=== PATIENT | female | born 1990 | race Caucasian/White ===

== ENCOUNTER 2017-05-22 10:57 | Inpatient (IN) ==
[2017-05-22] MEDS ORDERED: CITRIC ACID/SODIUM CITRATE 30 ML UDCUP PO ONE (11:31)
[2017-05-22] MEDS ORDERED: ceFAZolin 2,000 MG in PREMIX 1 EACH IV ONE (11:31)
[2017-05-22] MEDS ORDERED: FAMOTIDINE 20 MG/2 ML VIAL IV ONE (11:31)
[2017-05-22 11:57] LABS: Basophils # 0.1 10*3/uL (0.0-0.2); Basophils % 0.5 % (0.0-0.8); Eosinophils # 0.1 10*3/uL (0.0-0.87); Eosinophils % 1.2 % (0.00-10.9); Hematocrit 37.7 VOL% (35.7-47.0); Hemoglobin 12.9 GM/DL (12.0-16.0); Immature Granulocytes % 0.6 %; Immature Granulocytes Absolute 0.06 #; Lymphocytes # 2.1 10*3/uL (1.4-4.0); Lymphocytes % 20.2 % (21.3-54.2); Mean Corpuscular HGB Conc 34.2 GM/DL (32-36); Mean Corpuscular Hemoglobin 30 PG (27-34); Mean Corpuscular Volume 88.7 FL (87-102); Mean Platelet Volume 10.9 FL (9.6-12.0); Monocytes # 0.6 10*3/uL (0.11-0.8); Monocytes % 5.8 % (1.7-12.7); Neutrophils # 7.5 10*3/uL (1.4-7.4); Neutrophils % 71.7 % (38.7-73.9); Platelet Count 305 T/CUMM (130-400); Red Blood Count 4.25 MC/CUMM (3.8-5.5); Red Cell Distribution Width 13.5 % (9.3-17.3); White Blood Count 10.4 T/CUMM (4-12)
[2017-05-22] MEDS ORDERED: LACTATED RINGERS 1,000 ML IV SCH ×2 (12:00→14:30)
[2017-05-22] MEDS ORDERED: LACTATED RINGERS 1,000 ML IV ONE (12:00)
[2017-05-22] MEDS ORDERED: OXYTOCIN/LR 30 UNIT/1,000 ML BAG IV ONE (12:04)
[2017-05-22] MEDS ORDERED: OXYTOCIN 10 UNIT/ML VIAL IM ONE (12:04)
[2017-05-22 12:41] LABS: Albumin 2.9 G/DL (3.4-5.0); Bilirubin,Total 0.5 MG/DL (0.2-1.0); Calcium 8.6 MG/DL (8.5-10.1); Osmolality,Calculated 274.4 MOS/KG (273-304); Potassium 3.6 MMOL/L (3.5-5.1); Total Protein 6.7 G/DL (6.4-8.3)
--- NOTE | 2017-05-22 14:27 | OB/GYN History & Physical ---
History of Present Illness Chief complaint: Repeat 39 weeks History of present illness: Ms. Sarkar is a 26 year old female 2 para 1 EDC is 05/29/2017 at 39 weeks gestation presents for repeat section. Risks benefits are discussed she is in full agreement. heart tones category 1. No contractions were noted. Fetus is very active. All the risks and benefits were thoroughly discussed with the patient and her and she is in full agreement Home Medications Medication Instructions Recorded Confirmed Type Albuterol Inhaler [Proventil 2 puff INH Q4H PRN #1 inhaler 02/10/16 Rx Inhaler] predniSONE TAB [PredniSONE] 20 mg PO BID #14 tablet 02/10/16 Rx Allergies Allergy/AdvReac Type Severity Reaction Status Date / Time diphenhydramine Allergy Difficulty Verified 02/10/16 12:13 [From Benadryl] Breathing Medical,Surgical,& Family Hx - Medical History Cardio: No history of: Cardiovascular Problems Psychological: No history of: Anxiety Disorders, Violent Behavior Neurology: No history of: Brain Aneurysm, Cerebral Hemorrhage, Cerebrovascular Accident , Cerebral Palsy, Dementia, Migraine, Multiple Sclerosis, Parkinson's Disease, Peripheral Neuropathy, Seizures, TIA, Vertigo, Neurologocal Cancer HEENT: No history of: HEENT Problems Endocrine: No history of: Diabetes Mellitus (IDDM), Diabetes Mellitus (NIDDM), Thyroid Disorder, Endocrine Cancer, Endocrine Problems Respiratory: History of: Asthma No history of: Bronchitis, COPD, Intubation, Obstructive Sleep Apnea, Pulmonary Embolism, Pulmonary Hypertension, Pneumonia, Lung Cancer, Respiratory Problems Renal: No history of: Renal Problems Gastrointestinal: No history of: GI Problems Musculoskeletal: No history of: Amputation, Musculoskeletal Problems Hematology: No history of: Blood Transfusion Reaction, Bleeding Problems Reproductive: No history of: Ectopic , Complication Other: No history of: Cancer, Eczema, HIV, Miscellaneous Medical Problems - Surgical History Cardiac Surgeries: Patient Denies: Cardiac Catheterization, Cardiac Surgery Thoracic Surgeries: Patient denies;: Kidney (Renal Surgery), Organ Transplant, Lobectomy Neurologic Surgeries: Patient denies: Brain Aneurysm, Cerebral Hemorrhage, Neurologic Surgery HEENT Surgeries: Patient denies: Eye Surgery, Thyroid Surgery, Tonsilectomy & Adenoidectomy Abdominal Surgeries: Patient denies: Abdominal Surgery, Appendectomy, Cholecystectomy, Colonoscopy , Gastric Bypass Surgery, EGD, Hernia Repair Reproductive Surgeries: Surgical HX of;: Section (x1) Patient denies;: Breast Surgery, Genitourinary Surgery, Hysterectomy, Tubal Ligation Orthopedic Surgeries: Surgical HX of;: Orthopedic Surgery (R ankle) Patient denies;: Implanted Devices, Total Knee Replacement - Family History Family History: Reports;: Family Heart Disease (father), Family Hypertension ( father) Denies;: Family Anesthesia Reaction, Family Cancer, Family Diabetes, Family Hematology, Family Psychiatric Problems, Family Stroke, Additional Family History - Social History Smoking Status: Never smoker Frequency of Alcohol Use: None 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: 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 - Constitutional Vitals: Vital Signs Temp Pulse Resp BP 05/22/17 12:00 98.1 F 98 H 20 128/71 General appearance: normal weight - Antepartum / Post Antepartum Exam Cervix - Dilatation: Closed - Head Head exam: Present: normal inspection - Eye Eye exam: Present: EOMI Pupils: Present: VALERY - ENT ENT exam: Present: normal exam - Neck Neck exam: Present: normal inspection - Respiratory Respiratory exam: Present: clear to auscultation bilaterally - Breast Breasts: as per HPI Menstruation: as per HPI - Cardiovascular Cardiovascular exam: Present: regular rate and rhythm - GI/Abdominal GI/Abdominal exam: Present: normal bowel sounds - Extremities Exam Extremities exam: Present: normal inspection - Back Exam Back exam: Present: normal inspection - Neurological Exam Neurological exam: Present: alert - Psychiatric Psychiatric exam: Present: normal affect - Skin Skin exam: Present: normal color Results - Labs CBC & BMP: 05/22/17 11:50 05/22/17 11:50
--- NOTE | 2017-05-22 14:28 | Operative Note ---
Date of procedure: 05/22/17 Procedure: Preoperative diagnosis: 39 weeks gestation previous Postoperative diagnosis: Same Anesthesia:[] Regional Estimated blood loss: [] 300 Surgeon: Dr. Ramirez Findings: [] Artificial rupture membranes at 1357, baby is born at 1358, the placenta was delivered at 1359, the weight was 6 lbs. 13 oz., Apgars was 9 at 1 minute, 9 at 5 minutes, Complications: None Procedure: Low transverse section The patient was taken to the operating suite heart tones were obtained prior to and after regional anesthesia was obtained. She was placed in supine position her abdomen was prepped and draped in usual manner for major abdominal surgery. Through an abdominal incision the skin, subcutaneous, fascial layer and peritoneal the abdomen was entered. The bladder flap was created and a low transverse incision was made.. Fluid was clear and normal amount X, Apgars, the placenta was delivered and sent to lab for further evaluation. Injected with intrauterine Pitocin. The first layer of the uterus was closed with #1 Vicryl in a continuous locking manner. Close to imbricate the first layer with #1 Vicryl. The peritoneum was approximated with #2-0 Vicryl.[] All the last sponges and instruments were accounted for -2.) #2-0 Vicryl. Fascia was approximated with #0-0 Maxon.. The skin was approximated with afny. She tolerated procedure well and was taken to recovery room in stable condition. Surgeon / Physician: Teresita Ramirez Results - Labs CBC & BMP: 05/22/17 11:50 05/22/17 11:50 Discharge Plan - Discharge Medications No Action Albuterol Inhaler [Proventil Inhaler] 2 puff INH Q4H PRN #1 inhaler PRN Reason: Shortness Of Breath/Wheezing predniSONE TAB [PredniSONE] 20 mg PO BID #14 tablet - Follow Up or Referral - Forms/Instructions
[2017-05-22] MEDS ORDERED: RHO(D) IMMUNE GLOBULIN 300 MCG SYRINGE IM ONE (14:29)
[2017-05-22] MEDS ORDERED: OXYTOCIN/LR 20 UNIT/1,000 ML BAG IV ONE (14:29)
[2017-05-22] MEDS ORDERED: SIMETHICONE CHEW 80 MG TABLET PO PRN (14:29)
[2017-05-22] MEDS ORDERED: ONDANSETRON 4 MG/2 ML VIAL IV PRN (14:29)
[2017-05-22] MEDS ORDERED: ACETAMINOPHEN 325 MG TABLET PO PRN (14:29)
[2017-05-22 14:30] LABS: Cord Arterial Blood HCO3 22.5 MMOL/L
[2017-05-22 14:35] LABS: Cord Venous Blood PCO2 43.1 MMHG; Cord Venous Blood PO2 38.3
[2017-05-22 14:35] LABS: Apearance,Urine CLEAR (Clear); Bilirubin,Urine Negative (Negative); Blood, Urine Negative (Negative); Glucose,Urine (UA) Negative (Negative); Ketones,Urine 20 mg/dL (Negative); Mucus,Urine Occasional /LPF (Occasional); Nitrite,Urine Negative (Negative); Protein,Urine Negative; RBC,Urine 1 /HPF (0-4); Urine Color Yellow (Yellow); Urine Specific Gravity 1.008 (1.001-1.035); Urine Urobilinogen < 2.0 EU/DL (0.2-1.0); WBC,Urine 1 /HPF (0-6)
[2017-05-22] MEDS ORDERED: MORPHINE 10 MG/10 ML VIAL ONE (14:38)
--- NOTE | 2017-05-22 14:43 | Anesthesia Post-Op ---
Anesthesia Post OP - Post Ansesthetic Evaluation Patient seen in post op: Yes Resp: within normal limits CV: within normal limits Mental: within normal limits Temp: within normal limits [id number]: within normal limits Nausea and Vomiting: within normal limits Pain: within normal limits
[2017-05-22 22:55] LABS: Basophils # 0.1 10*3/uL (0.0-0.2); Basophils % 0.4 % (0.0-0.8); Eosinophils # 0.1 10*3/uL (0.0-0.87); Eosinophils % 0.6 % (0.00-10.9); Hemoglobin 11.5 GM/DL (12.0-16.0); Immature Granulocytes % 0.6 %; Immature Granulocytes Absolute 0.09 #; Lymphocytes # 2.1 10*3/uL (1.4-4.0); Lymphocytes % 13.3 % (21.3-54.2); Mean Corpuscular HGB Conc 34.8 GM/DL (32-36); Mean Corpuscular Hemoglobin 31 PG (27-34); Mean Corpuscular Volume 88.7 FL (87-102); Mean Platelet Volume 10.9 FL (9.6-12.0); Monocytes % 6.4 % (1.7-12.7); Neutrophils # 12.3 10*3/uL (1.4-7.4); Neutrophils % 78.7 % (38.7-73.9); Platelet Count 277 T/CUMM (130-400); Red Blood Count 3.72 MC/CUMM (3.8-5.5); Red Cell Distribution Width 13.2 % (9.3-17.3); White Blood Count 15.6 T/CUMM (4-12)
[2017-05-22] MEDS: DOCUSATE SODIUM 100 MG CAPSULE PO SCH (23:02)
[2017-05-23 02:53] LABS: Basophils # 0.1 10*3/uL (0.0-0.2); Basophils % 0.5 % (0.0-0.8); Eosinophils # 0.2 10*3/uL (0.0-0.87); Eosinophils % 1.2 % (0.00-10.9); Hematocrit 34.2 VOL% (35.7-47.0); Hemoglobin 11.6 GM/DL (12.0-16.0); Immature Granulocytes % 0.5 %; Immature Granulocytes Absolute 0.07 #; Lymphocytes # 2.3 10*3/uL (1.4-4.0); Lymphocytes % 15.1 % (21.3-54.2); Mean Corpuscular HGB Conc 33.9 GM/DL (32-36); Mean Corpuscular Hemoglobin 30 PG (27-34); Mean Corpuscular Volume 88.4 FL (87-102); Mean Platelet Volume 10.8 FL (9.6-12.0); Monocytes # 0.9 10*3/uL (0.11-0.8); Monocytes % 6.3 % (1.7-12.7); Neutrophils # 11.4 10*3/uL (1.4-7.4); Neutrophils % 76.4 % (38.7-73.9); Platelet Count 284 T/CUMM (130-400); Red Blood Count 3.87 MC/CUMM (3.8-5.5); Red Cell Distribution Width 13.2 % (9.3-17.3); White Blood Count 14.9 T/CUMM (4-12)
[2017-05-23] MEDS: MAGNESIUM HYDROXIDE SUSP 30 ML UDCUP PO PRN ×2 (09:17→20:23)
[2017-05-23] MEDS: MULTIVITAMIN (PRENATAL) TABLET PO SCH (09:17)
[2017-05-23] MEDS: DOCUSATE SODIUM 100 MG CAPSULE PO SCH ×2 (09:17→20:23)
[2017-05-23] MEDS: IBUPROFEN 800 MG TABLET PO PRN ×2 (12:29→20:54)
--- NOTE | 2017-05-23 15:37 | OB/GYN Progress Note ---
Assessment and Plan (1) Previous section Status: Acute Current Visit: Yes (2) S/P repeat low transverse Status: Acute Assessment and plan: Initiate routine post-op orders. 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 Bonding well with . 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 - Constitutional Vitals: Vital Signs Temp Pulse Resp BP Pulse Ox 05/23/17 11:15 98.3 F 69 20 108/51 97 05/23/17 07:44 97.7 F 86 18 111/69 98 05/23/17 04:00 98.5 F 82 18 107/51 96 05/23/17 00:15 98.2 F 73 18 97/57 96 05/22/17 19:20 98 F 74 16 106/62 96 05/22/17 18:40 79 20 117/63 98 05/22/17 17:40 67 20 116/69 98 05/22/17 17:10 75 18 122/67 98 05/22/17 16:40 97.1 F L 78 20 119/69 98 General appearance: no acute distress - Antepartum / Post Antepartum Exam Breast: bilateral: normal Abdomen obstetrics: Present: bowel sounds normal Vagina: Present: normal moisture, discharge (light lochia rubra) Uterus exam: Present: enlarged Anus/Rectum: Present: normal perianal skin - Gyencological / Post Surgical Post Surgical Exam Lungs: bilateral: normal Chest: Normal S1, Normal S2 Extremities CUSTOM BOOKBINDER: Present: normal Abdomen obstetrics progress note: Present: normal appearance, soft Incision OB: Present: normal, intact - Head Head exam: Present: normal inspection - Respiratory Respiratory exam: Present: clear to auscultation bilaterally - Cardiovascular Cardiovascular exam: Present: regular rate and rhythm - GI/Abdominal GI/Abdominal exam: Present: normal bowel sounds, rebound - Extremities Exam Extremities exam: Present: normal inspection - Neurological Exam Neurological exam: Present: alert, oriented X3 - Psychiatric Psychiatric exam: Present: normal affect, normal mood - Skin Skin exam: Present: normal color, warm Results - Labs CBC & BMP: 05/23/17 02:40 05/22/17 11:50
[2017-05-24] MEDS: MULTIVITAMIN (PRENATAL) TABLET PO SCH (09:33)
[2017-05-24] MEDS: DOCUSATE SODIUM 100 MG CAPSULE PO SCH ×2 (09:33→20:56)
[2017-05-24] MEDS: MAGNESIUM HYDROXIDE SUSP 30 ML UDCUP PO PRN ×2 (09:33→20:56)
[2017-05-24] MEDS: IBUPROFEN 800 MG TABLET PO PRN ×2 (09:37→20:56)
--- NOTE | 2017-05-24 09:37 | OB/GYN Progress Note ---
Assessment and Plan (1) Previous section Status: Acute Current Visit: Yes (2) S/P repeat low transverse Status: Acute Assessment and plan: Initiate routine post operative orders. 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 Exam PAIL BAILER - Constitutional Vitals: Vital Signs Temp Pulse Resp BP Pulse Ox 05/24/17 07:30 97.1 F L 93 H 20 112/63 98 05/24/17 03:53 97.2 F L 82 20 108/62 95 05/24/17 00:00 98.8 F 83 20 106/54 97 05/23/17 19:20 98 F 106 H 20 130/81 96 05/23/17 15:42 98.3 F 86 18 105/55 98 05/23/17 11:15 98.3 F 69 20 108/51 97 General appearance: no acute distress - Antepartum / Post Antepartum Exam Breast: bilateral: normal Vagina: Present: normal moisture, discharge (Moderate lochia rubra) Uterus exam: Present: enlarged (Fundus firm midline) Anus/Rectum: Present: normal perianal skin - Respiratory Respiratory exam: Present: clear to auscultation bilaterally - Cardiovascular Cardiovascular exam: Present: regular rate and rhythm - GI/Abdominal GI/Abdominal exam: Present: normal bowel sounds, soft - Extremities Exam Extremities exam: Present: normal inspection - Back Exam Back exam: Present: normal inspection - Neurological Exam Neurological exam: Present: alert, oriented X3 - Psychiatric Psychiatric exam: Present: normal affect, normal mood - Skin Skin exam: Present: normal color, warm Results - Labs CBC & BMP: 05/23/17 02:40 05/22/17 11:50
[2017-05-24] MEDS ORDERED: BISACODYL 10 MG SUPP RECTAL PRN (20:39)
[2017-05-25] MEDS: MULTIVITAMIN (PRENATAL) TABLET PO SCH (08:46)
[2017-05-25] MEDS: DOCUSATE SODIUM 100 MG CAPSULE PO SCH (08:46)
[2017-05-25] MEDS: IBUPROFEN 800 MG TABLET PO PRN (08:47)
[2017-05-25 12:20] VITALS: BP 126/61
--- NOTE | 2017-05-25 15:05 | Discharge Summary ---
Hospital Course - Hospital Course Hospital Course: Ms. Sarkar presented to the labor department for elective repeat section due to previous section. She delivered a viable infant with no complications. She has followed a normal postoperative course and she has done well. Her incision is well approximated without signs of infection. She is voiding without difficulty. Her fundus is firm and midline. Her bleeding is minimal with no odor. She is bonding well with her . Contraception options has been discussed with this patient and her significant other, they are undecided on a method at this time. She will be discharged home prescriptions for pain and follow-up appointment in our office. Diagnosis - Discharge Diagnosis (1) Previous section Status: Acute (2) S/P repeat low transverse Status: Acute Specialty Discharge - Follow Up or Referrals Follow up with: Teresita Ramirez MD [Physician] - 2 Weeks Discharge Plan - Discharge Data Disposition: Disch To Home/Self Care Condition at Discharge: Stable Discharge Diet: advance to your usual diet, regular diet Activity: increase activity as tolerated, no lifting, no prolonged standing Hygiene: may shower Weight Bearing at Discharge: partial weight bearing Driving: not until seen by doctor Contact your physician if you experience:: fever over 101, pain uncontrolled by pain medications - Discharge Medications New HYDROcodone/ACETAMIN 5-325 [[place] 5-325] 2 tablet PO Q6H PRN #30 tablet PRN Reason: Pain Severe (8-10) Ibuprofen Tab [Motrin Tab] 800 mg PO Q8H PRN #30 tablet PRN Reason: Pain Severe (8-10) No Action Albuterol Inhaler [Proventil Inhaler] 2 puff INH Q4H PRN #1 inhaler PRN Reason: Shortness Of Breath/Wheezing predniSONE TAB [PredniSONE] 20 mg PO BID #14 tablet - Follow Up or Referral - Forms/Instructions Instructions: Section (DC), Depression (GEN), Perineal Care (DC), Bleeding (DC) Exam - Constitutional Vitals: Period Temp Pulse Resp BP Sys/Barkley Pulse Ox Last 24 Hr 97.1 F-98.6 F 79-104 18-20 83-126/53-67 96-98 General appearance: no acute distress - Respiratory Respiratory exam: Present: clear to auscultation bilaterally - Cardiovascular Cardiovascular exam: Present: regular rate and rhythm - GI/Abdominal GI/Abdominal exam: Present: normal bowel sounds, soft - Extremities Exam Extremities exam: Present: normal inspection - Back Exam Back exam: Present: normal inspection - Neurological Exam Neurological exam: Present: alert, oriented X3 - Psychiatric Psychiatric exam: Present: normal affect, normal mood - Skin Skin exam: Present: normal color, warm DS: Provider Date of admission: 05/22/17 12:06 Primary care physician: . No PCP Attending physician on admission: Teresita Ramirez MD Consults: 05/22/17 11:31 Consult to Anesthesiology [CONS] Routine Consulting Provider: Reason for Anesthesiology: Pre-op Clearance 05/22/17 13:06 Consult to Dietitian [CONS] Routine Reason for Dietitian: Diet Recommendations 05/22/17 14:29 Consult to Exercise Specialist [CONS] Routine Consult Exercise Specialist: Breast Feeding Discharging clinician: Mila Monae CNM Expected date of discharge: 05/25/17
[2017-05-25] MEDS ORDERED: DIPH/TET/ACEL PERT BOOSTER VACCINE 0.5 ML VIAL IM ONE (16:15)
== END 2017-05-25 16:50 | disposition home or self-care (01) | DRG 540 ==
LOC: N.LDOUT 10:57 → N.LD 10:59 → N.OB 16:34
PROVIDERS: ADMIT Obstetrics & Gynecology; ATTEND Obstetrics & Gynecology
PROC: LDCSECT (ICD-10-PCS; 2017-05-22 13:00)

== ENCOUNTER 2018-08-29 10:00 | Inpatient (IN) ==
[2018-08-29] MEDS ORDERED: ceFAZolin 2,000 MG in PREMIX 1 EACH IV ONE (10:23)
[2018-08-29] MEDS ORDERED: CITRIC ACID/SODIUM CITRATE 30 ML UDCUP PO ONE (10:23)
[2018-08-29] MEDS ORDERED: FAMOTIDINE 20 MG/2 ML VIAL IV ONE (10:23)
[2018-08-29] MEDS ORDERED: OXYTOCIN 10 UNIT/ML VIAL IM ONE (10:26)
[2018-08-29] MEDS ORDERED: OXYTOCIN/LR 30 UNIT/1,000 ML BAG IV ONE (10:26)
[2018-08-29] MEDS ORDERED: LACTATED RINGERS 1,000 ML IV SCH (10:30)
[2018-08-29 10:48] LABS: Basophils # 0.1 10*3/uL (0.0-0.2); Basophils % 0.5 % (0.0-0.8); Eosinophils # 0.2 10*3/uL (0.0-0.87); Eosinophils % 1.2 % (0.00-10.9); Hematocrit 37.7 VOL% (35.7-47.0); Hemoglobin 11.9 GM/DL (12.0-16.0); Immature Granulocytes Absolute 0.14 #; Lymphocytes # 2.3 10*3/uL (1.4-4.0); Lymphocytes % 16.4 % (21.3-54.2); Mean Corpuscular HGB Conc 31.6 GM/DL (32-36); Mean Corpuscular Hemoglobin 27 PG (27-34); Mean Corpuscular Volume 86.5 FL (87-102); Mean Platelet Volume 10.6 FL (9.6-12.0); Monocytes # 0.8 10*3/uL (0.11-0.8); Monocytes % 5.7 % (1.7-12.7); Neutrophils # 10.4 10*3/uL (1.4-7.4); Neutrophils % 75.2 % (38.7-73.9); Platelet Count 378 T/CUMM (130-400); Red Blood Count 4.36 MC/CUMM (3.8-5.5); Red Cell Distribution Width 14.9 % (9.3-17.3); White Blood Count 13.9 T/CUMM (4-12)
[2018-08-29 11:20] LABS: Albumin 3.1 G/DL (3.4-5.0); Bilirubin,Total 0.4 MG/DL (0.2-1.0); Calcium 8.7 MG/DL (8.5-10.1); Osmolality,Calculated 274.4 MOS/KG (273-304); Potassium 3.4 MMOL/L (3.5-5.1); Total Protein 7.7 G/DL (6.4-8.3)
[2018-08-29 13:28] LABS: Cord Arterial Blood HCO3 21.2 MMOL/L
[2018-08-29 13:31] LABS: Cord Venous Blood HCO3 25.1 MMOL/L; Cord Venous Blood PCO2 42.2 MMHG; Cord Venous Blood PO2 35.5 MMHG
[2018-08-29 13:33] LABS: Apearance,Urine CLEAR (Clear); Bacteria,Urine Occasional /HPF (Few); Bilirubin,Urine Negative (Negative); Blood, Urine Negative (Negative); Glucose,Urine (UA) Negative (Negative); Ketones,Urine 20 mg/dL (Negative); Mucus,Urine Occasional /LPF (Occasional); Nitrite,Urine Negative (Negative); Protein,Urine Negative; RBC,Urine 2 /HPF (0-4); Squamous Epithelial Cell,Urine Occasional /HPF (0-10); Urine Color Yellow (Yellow); Urine Specific Gravity 1.013 (1.001-1.035); Urine Urobilinogen < 2.0 EU/DL (0.2-1.0); WBC,Urine 2 /HPF (0-6)
[2018-08-29] MEDS ORDERED: MORPHINE 10 MG/10 ML VIAL ONE (13:39)
[2018-08-29] MEDS ORDERED: fentaNYL 100 MCG/2 ML VIAL ONE (13:39)
[2018-08-29] MEDS ORDERED: BUPIVACAINE SPINAL 0.75% 2 ML AMP SPINAL ONE (13:39)
[2018-08-29] MEDS ORDERED: ONDANSETRON 4 MG/2 ML VIAL ONE (13:39)
[2018-08-29] MEDS ORDERED: RHO(D) IMMUNE GLOBULIN 300 MCG SYRINGE IM ONE (13:46)
[2018-08-29] MEDS ORDERED: ONDANSETRON 4 MG/2 ML VIAL IV PRN (13:46)
[2018-08-29] MEDS ORDERED: ACETAMINOPHEN 325 MG TABLET PO PRN (13:46)
[2018-08-29] MEDS ORDERED: OXYTOCIN/LR 20 UNIT/1,000 ML BAG IV ONE (13:46)
[2018-08-29] MEDS ORDERED: PROMETHAZINE 25 MG/1 ML VIAL IM PRN (17:02)
[2018-08-29 19:46] LABS: Basophils # 0.1 10*3/uL (0.0-0.2); Basophils % 0.4 % (0.0-0.8); Eosinophils # 0.1 10*3/uL (0.0-0.87); Eosinophils % 0.3 % (0.00-10.9); Hematocrit 30.7 VOL% (35.7-47.0); Hemoglobin 9.8 GM/DL (12.0-16.0); Immature Granulocytes % 0.5 %; Immature Granulocytes Absolute 0.07 #; Lymphocytes # 2.1 10*3/uL (1.4-4.0); Lymphocytes % 13.6 % (21.3-54.2); Mean Corpuscular HGB Conc 31.9 GM/DL (32-36); Mean Corpuscular Hemoglobin 28 PG (27-34); Mean Platelet Volume 10.8 FL (9.6-12.0); Monocytes % 6.8 % (1.7-12.7); Neutrophils % 78.4 % (38.7-73.9); Platelet Count 293 T/CUMM (130-400); Red Blood Count 3.53 MC/CUMM (3.8-5.5); Red Cell Distribution Width 14.6 % (9.3-17.3); White Blood Count 15.3 T/CUMM (4-12)
[2018-08-29] MEDS ORDERED: SODIUM CHLORIDE 0.9% 50 ML IV ONE (22:14)
[2018-08-29] MEDS: LACTATED RINGERS 1,000 ML IV SCH ×2 (22:21)
[2018-08-29] MEDS: ceFAZolin 1,000 MG in SYRINGE 1 EACH IV SCH (22:21)
[2018-08-30] MEDS: ceFAZolin 1,000 MG in SYRINGE 1 EACH IV SCH (05:03)
[2018-08-30] MEDS: DOCUSATE SODIUM 100 MG CAPSULE PO SCH ×3 (05:07→23:45)
[2018-08-30 05:56] LABS: Basophils # 0.1 10*3/uL (0.0-0.2); Basophils % 0.6 % (0.0-0.8); Eosinophils # 0.2 10*3/uL (0.0-0.87); Eosinophils % 1.3 % (0.00-10.9); Hemoglobin 9.1 GM/DL (12.0-16.0); Immature Granulocytes % 0.5 %; Immature Granulocytes Absolute 0.06 #; Lymphocytes # 1.5 10*3/uL (1.4-4.0); Mean Corpuscular HGB Conc 32.5 GM/DL (32-36); Mean Corpuscular Hemoglobin 28 PG (27-34); Mean Corpuscular Volume 85.6 FL (87-102); Mean Platelet Volume 10.6 FL (9.6-12.0); Monocytes # 0.9 10*3/uL (0.11-0.8); Monocytes % 7.8 % (1.7-12.7); Neutrophils # 9.1 10*3/uL (1.4-7.4); Neutrophils % 76.8 % (38.7-73.9); Platelet Count 303 T/CUMM (130-400); Red Blood Count 3.27 MC/CUMM (3.8-5.5); Red Cell Distribution Width 14.6 % (9.3-17.3); White Blood Count 11.8 T/CUMM (4-12)
[2018-08-30] MEDS: LACTATED RINGERS 1,000 ML IV SCH (06:53)
[2018-08-30] MEDS: IBUPROFEN 800 MG TABLET PO PRN ×3 (06:59→23:45)
[2018-08-30] MEDS ORDERED: METOCLOPRAMIDE 10 MG TABLET ONE (09:47)
[2018-08-30] MEDS: SIMETHICONE CHEW 80 MG TABLET PO PRN (11:34)
[2018-08-30] MEDS: FERROUS SULFATE 325 MG TABLET PO SCH ×2 (11:34→23:45)
[2018-08-30] MEDS: METOCLOPRAMIDE 10 MG TABLET PO SCH ×4 (11:34→23:45)
[2018-08-30] MEDS: MAGNESIUM HYDROXIDE SUSP 30 ML UDCUP PO PRN ×2 (11:34→23:45)
[2018-08-30] MEDS: MULTIVITAMIN (PRENATAL) TABLET PO SCH (11:34)
[2018-08-31] MEDS: METOCLOPRAMIDE 10 MG TABLET PO SCH ×3 (06:47→21:18)
[2018-08-31] MEDS ORDERED: INFLUENZA VIRUS VACCINE 0.5 ML SYRINGE IM ONE (08:00)
[2018-08-31] MEDS: MULTIVITAMIN (PRENATAL) TABLET PO SCH (10:06)
[2018-08-31] MEDS: FERROUS SULFATE 325 MG TABLET PO SCH ×2 (10:06→21:18)
[2018-08-31] MEDS: DOCUSATE SODIUM 100 MG CAPSULE PO SCH ×2 (10:06→21:19)
[2018-08-31] MEDS: SIMETHICONE CHEW 80 MG TABLET PO PRN (21:19)
[2018-08-31] MEDS: IBUPROFEN 800 MG TABLET PO PRN (21:19)
[2018-08-31] MEDS: MAGNESIUM HYDROXIDE SUSP 30 ML UDCUP PO PRN (21:20)
[2018-09-01] MEDS: METOCLOPRAMIDE 10 MG TABLET PO SCH ×2 (06:05→08:41)
[2018-09-01 07:35] VITALS: BP 100/60
[2018-09-01] MEDS: FERROUS SULFATE 325 MG TABLET PO SCH (08:38)
[2018-09-01] MEDS: MULTIVITAMIN (PRENATAL) TABLET PO SCH (08:38)
[2018-09-01] MEDS: MAGNESIUM HYDROXIDE SUSP 30 ML UDCUP PO PRN (08:38)
[2018-09-01] MEDS: DOCUSATE SODIUM 100 MG CAPSULE PO SCH (08:38)
[2018-09-01] MEDS ORDERED: DIPH/TET/ACEL PERT BOOSTER VACCINE 0.5 ML VIAL IM ONE (08:45)
[2018-09-01] MEDS ORDERED: INFLUENZA VIRUS VACCINE 0.5 ML SYRINGE IM ONE (08:45)
== END 2018-09-01 11:40 | disposition home or self-care (01) | DRG 540 ==
LOC: N.LDOUT 10:00 → N.LD 10:01 → N.OB 16:18
PROVIDERS: ADMIT Obstetrics & Gynecology; ATTEND Obstetrics & Gynecology
PROC: LDCSECT (ICD-10-PCS; 2018-08-29 12:25)